=== PATIENT | male | born 1995 | race Hispanic/Latino ===

== ENCOUNTER 2022-08-02 08:57 | Emergency (ER) | payer OTHER, SELFPAY ==
[2022-08-02 09:10] VITALS: PULSE 106; O2SAT 97
[2022-08-02 09:11] VITALS: BP 168/77; PULSE 106; O2SAT 97
[2022-08-02 09:13] VITALS: BP 129/58; PULSE 107; O2SAT 99
[2022-08-02 09:14] VITALS: BP 168/77; PULSE 97; RESP 18; TEMP 36.7; O2SAT 98; BMI 26.7
[2022-08-02 09:30] VITALS: BP 128/60; PULSE 84; O2SAT 99
[2022-08-02 10:00] VITALS: BP 109/51; PULSE 81; O2SAT 99
--- NOTE | 2022-08-02 10:20 | ED_ITS ---
HPI - Back Pain/Injury General Chief Complaint: Back Pain/Injury Stated Complaint: Back pain when breathing in Time Seen by Provider: 08/02/22 10:05 Source: patient Mode of arrival: Ambulatory Limitations: no limitations History of Present Illness HPI Narrative: Patient is a 26-year-old male who is here for evaluation of left-sided midthoracic back discomfort. Has been going on for the past week. He states that it started after he performed some heavy lifting at work but it was not want specific incident that caused the pain. He has been taking some Advil with only minimal relief. He states this morning symptoms seemed to get somewhat worse. It does feel worse when he moves his shoulders back and also takes a deep breath. Related Data Previous Rx's Medication Instructions Recorded cyclobenzaprine 10 mg tablet 10 mg PO TID PRN muscle spasm #21 08/02/22 tabs Allergies Allergy/AdvReac Type Severity Reaction Status Date / Time No Known Drug Allergies Allergy Verified 08/02/22 09:18 Review of Systems Musculoskeletal Musculoskeletal: Reports system reviewed and no additional complaints, except as documented Integumentary/Breasts Skin/Breast: Reports system reviewed and no additional complaints, except as documented Neurologic Neurologic: Reports system reviewed and no additional complaints, except as documented Hematologic/Lymphatic On Anticoagulants: No Patient History Social History Smoking Status: Current some day smoker Smoking Status: Current some day smoker alcohol intake frequency: 0-2 drinks per day Substance Use Type: marijuana Exam Initial Vital Signs Initial Vital Signs: Vital Signs Pulse Rate 106 H 08/02/22 09:10 Pulse Oximetry 97 08/02/22 09:10 Oxygen Delivery Method Room Air 08/02/22 09:10 Back/Spine/Pelvis Other: Tenderness to palpation along the left rhomboid. No midline thoracic tenderness. Neuro General: patient alert, patient awake and moves all extremities Course Vital Signs Vital signs: Vital Signs - 8 hr 08/02/22 09:14 08/02/22 09:10 08/02/22 09:11 Temperature 98.1 F Pulse Rate 97 H 106 H Respiratory Rate 18 Blood Pressure 168/77 H 168/77 H Pulse Oximetry 98 97 Oxygen Delivery Method Room Air Room Air 08/02/22 09:11 08/02/22 09:13 08/02/22 09:13 Temperature Pulse Rate 106 H 107 H Respiratory Rate Blood Pressure 129/58 L Pulse Oximetry 97 99 Oxygen Delivery Method 08/02/22 09:30 08/02/22 09:30 08/02/22 10:00 Temperature Pulse Rate 84 Respiratory Rate Blood Pressure 128/60 109/51 L Pulse Oximetry 99 Oxygen Delivery Method Room Air 08/02/22 10:00 Temperature Pulse Rate 81 Respiratory Rate Blood Pressure Pulse Oximetry 99 Oxygen Delivery Method Room Air MDM - Back Pain/Injury MDM Narrative Medical decision making narrative: Patient does have tenderness over the left rhomboid and is more consistent with a muscle soreness. Low suspicion for fracture or pulmonary injury. No indication for radiologic studies. Will he will continue with the anti- inflammatories. Will provide muscle relaxant for use as needed. He was given return precautions. He expressed understanding and agreement. Discharge Plan Departure Patient Disposition: Home Clinical Impression: Strain of left rhomboid muscle Instructions: DI for Back Strain or Sprain Activity Restrictions/Additional Instructions: I do recommend that you continue with anti-inflammatories. You were given a prescription for some muscle relaxers today that you can use as needed. Also recommend other conservative measures such as heat and ice and massage. I suspect that your symptoms will improve over the next couple days. Prescriptions: New cyclobenzaprine 10 mg tablet 10 mg PO TID PRN (Reason: muscle spasm) Qty: 21 0RF Referrals: ProviderChiquis [Primary Care Provider] - Stand Alone Forms: Patient Portal/API
== END 2022-08-02 10:26 | disposition home or self-care (01) ==
PROVIDERS: Emergency Provider Emergency Medicine
DX: S29.012A Strain of muscle and tendon of back wall of thorax, initial encounter (principal); X50.0XXA Overexertion from strenuous movement or load, initial encounter
CPT/HCPCS: 99281